=== PATIENT | female | born 1980 | race Caucasian/White ===

== ENCOUNTER 2019-04-14 09:31 | Emergency (ER) | payer MEDICAID ==
[~2019-04-14] VITALS: Ht 147.3 cm; Wt 58.1 kg
[2019-04-14 10:06] VITALS: BP 112/81
--- NOTE | 2019-04-14 10:08 | NUR ---
ED Nurse Note:pt. fell from the steps and c/o back right shoulder pain
[2019-04-14] MEDS ORDERED: HYDROcodone/Acetamin 5/325 tab PO ONE (10:15)
--- NOTE | 2019-04-14 10:54 | NUR ---
ED Nurse Note:pain meds given and pt. had x-rays done
--- NOTE | 2019-04-14 10:57 | Diagnostic Imaging Report ---
Indication: pain Pelvic trauma and pain Findings: Single AP view of the pelvis was performed. There is slight irregularity of the left inferior pubic ramus which may be fractured. Acuity is not certain. These correlate clinically. IMPRESSION: Irregularity of the left inferior pubic ramus consistent with fracture. Acuity of this injury is unknown based on this single view. Please correlate clinically and obtain further images as needed.
--- NOTE | 2019-04-14 11:07 | Diagnostic Imaging Report ---
Indication: Back pain Comparison: None Findings: 3 views of the lumbar spine were obtained. There is a moderate anterolisthesis of L5 on S1. There is a probable pars defect involving L5. There is no acute fracture. There is sclerosis of the lumbar facets at L4-5 and L5-S1. Irregular apophysis of the anterosuperior aspects of the L4 and L5 vertebra are noted. These are normal variants. IMPRESSION: No acute injury appreciated Grade 1-2 anterolisthesis L5 on S1. Possible pars interarticularis defect at L5 but this is not for certain. Unfused apophysis at L4 and L5, normal variants. These are not traumatic injuries.
[2019-04-14] MEDS ORDERED: NORCO 5-325 TA1 EACH ORAL (11:25)
[2019-04-14] MEDS ORDERED: IBUPROFEN600 MG ORAL (11:25)
[2019-04-14] MEDS ORDERED: CYCLOBENZAPRINE10 MG ORAL (11:25)
[2019-04-14 11:31] VITALS: BP 114/79
--- NOTE | 2019-04-14 11:32 | NUR ---
ER DISCHARGE NOTE: Patient is cleared to be discharged per ERMD, pt is aox4, on room air, with stable vital signs. pt was given dc and prescription instructions, pt was able to verbalize understanding, pt id band removed. pt is able to ambulate with steady gait. pt took all belongings.
--- NOTE | 2019-04-14 14:24 | Emergency Room Report ---
History of Present Illness General Chief Complaint: Multiple Trauma/Fall Source: Patient Present Illness HPI Patient presents emergency department today complaining of mechanical fall. Patient had a mechanical fall onto her buttock. Patient is complaining lower back pain. Patient states that the pain is worse and radiates down her leg. She has a history of sciatica and feels similar. She denies any difficulty with ambulation. Other than the pain. Denies any other injuries. This occurred shortly prior to arrival. Symptoms noted to be moderate. No other modifying factors. No other associated signs and symptoms. No other complaints were noted. Allergies: Coded Allergies: PENICILLINS (Verified Allergy, Unknown, rash, 04/14/19) Patient History Past Medical History: asthma, other - Back pain Past Surgical History: none Social History: Denies: smoking, alcohol use, drug use Last Menstrual Period: 03/24/19 Reviewed Nursing Documentation: PMH: Agreed; PSxH: Agreed Nursing Documentation-PM Past Medical History: No History, Except For Hx Asthma: Yes Review of Systems All Other Systems: negative except mentioned in HPI Physical Exam Vital Signs Date Time Temp Pulse Resp B/P (MAP) Pulse Ox O2 Delivery O2 Flow Rate FiO2 04/14/19 09:34 98.4 94 16 112/81 (91) 98 Room Air Sp02 EP Interpretation: reviewed, normal General Appearance: normal inspection, well appearing, no apparent distress, alert Head: atraumatic Eyes: bilateral eye normal inspection ENT: normal ENT inspection, hearing grossly normal, normal voice Neck: normal inspection, full range of motion, supple, no bony tend Respiratory: normal inspection, lungs clear, normal breath sounds, no respiratory distress, no retraction, no wheezing Cardiovascular #1: regular rate, rhythm, no edema Gastrointestinal: normal inspection, normal bowel sounds, non tender, soft, no guarding, no hernia Genitourinary: no CVA tenderness Musculoskeletal: normal inspection, back normal, normal range of motion, other - Positive straight leg raise on the right Neurologic: normal inspection, alert, responsive, speech normal Psychiatric: normal inspection, judgement/insight normal, mood/affect normal Skin: normal inspection, normal color, no rash Medical Decision Making Diagnostic Impression: Primary Impression: Back pain Additional Impressions: Sciatica Fall ER Course Patient presents emergency department today status post fall. Considerations include fracture dislocation versus strain. Given patient presentation I feel the x-rays were indicated. L-spine and pelvic x-ray were negative for any acute changes. However there is evidence of spondylolisthesis and also prior hip injury as patient noted she had a previous hip fracture. Given that there is no acute changes patient was given pain medication with some relief of symptoms. Patient was given prescription for pain medications. Recommend rest. Patient is advised to follow up with primary doctor in 2-3 days and return the emergency room for any worsening symptoms and as needed. Other X-Ray Diagnostic Results Other X-Ray Diagnostic Results : X-Ray ordered: L-spine x-ray, pelvis x-ray negative per radiology Last Vital Signs Date Time Temp Pulse Resp B/P (MAP) Pulse Ox O2 Delivery O2 Flow Rate FiO2 04/14/19 11:32 98.4 89 20 114/79 98 Room Air Status: improved Disposition: HOME, SELF-CARE Condition: Stable Scripts Cyclobenzaprine Hcl* (FLEXERIL*) 10 Mg Tablet 10 MG ORAL THREE TIMES A DAY, #14 TAB Prov: Norman Alberts MD 04/14/19 Ibuprofen* (MOTRIN*) 600 Mg Tablet 600 MG ORAL Q8H PRN for For Pain, #30 TAB 0 Refills Prov: Norman Alberts MD 04/14/19 Hydrocodone Bit/Acetaminophen 5-325* (NORCO 5-325*) 1 Each Tablet 1 TAB ORAL Q6H PRN for For Pain, #20 TAB 0 Refills Prov: Norman Alberts MD 04/14/19 Referrals: NON PHYSICIAN (PCP) Departure Forms: Return to Work Return to Work Date: Apr 21, 2019 Patient Instructions: Spondylolisthesis With [facility] Norman Alberts MD Apr 14, 2019 14:24
== END 2019-04-14 11:40 | disposition home or self-care (01) ==
LOC: EMR 10:15
DX: M54.40 Lumbago with sciatica, unspecified side (principal); W19.XXXA Unspecified fall, initial encounter; Y92.9 Unspecified place or not applicable; Z88.0 Allergy status to penicillin
CPT/HCPCS: 72020; 72170; 99284